=== PATIENT | female | born 1985 | race Caucasian/White ===

== ENCOUNTER 2020-07-02 15:52 | Emergency (ER) | payer BC ==
[~2020-07-02] VITALS: Ht 162.6 cm; Wt 77.3 kg
[2020-07-02 15:56] VITALS: Ht 162.6 cm; Wt 77.3 kg
[2020-07-02] MEDS ORDERED: NEURONTIN 400400 MG PO (15:59)
[2020-07-02] MEDS ORDERED: OMEPRAZOLE20 M1 PO (15:59)
[2020-07-02] MEDS ORDERED: JANUVIA50 MG PO (15:59)
[2020-07-02] MEDS ORDERED: TRESIBA FL100 UNIT/1 SC (16:00)
[2020-07-02] MEDS ORDERED: ARTHROTEC 501 TAB.EC PO (16:58)
[2020-07-02] MEDS ORDERED: PREDNISONE50 MG PO (16:58)
[2020-07-02 18:26] VITALS: BP 139/72
== END 2020-07-02 18:19 | disposition home or self-care (01) ==
LOC: D.ER 15:52
DX: M54.16 Radiculopathy, lumbar region (principal); S39.012A Strain of muscle, fascia and tendon of lower back, initial encounter; E11.9 Type 2 diabetes mellitus without complications; I10 Essential (primary) hypertension; K21.9 Gastro-esophageal reflux disease without esophagitis; Z72.0 Tobacco use; Z79.84 Long term (current) use of oral hypoglycemic drugs; X58.XXXA Exposure to other specified factors, initial encounter